=== PATIENT | male | born 1970 | race Caucasian/White ===

== ENCOUNTER 2025-06-21 11:28 | Emergency (ER) | payer SELFPAY ==
[~2025-06-21] VITALS: Ht 180.3 cm; Wt 77.0 kg
[2025-06-21 11:31] VITALS: BP 190/100; PULSE 80; RESP 16; TEMP 36.7; O2SAT 99
== END 2025-06-21 11:36 | disposition home or self-care (01) ==
LOC: ER 11:28
DX: F10.129 Alcohol abuse with intoxication, unspecified (principal); F31.9 Bipolar disorder, unspecified; Z88.0 Allergy status to penicillin; Y90.9 Presence of alcohol in blood, level not specified
CPT/HCPCS: 99283